=== PATIENT | female | born 1965 | race Caucasian/White ===

== ENCOUNTER 2024-01-02 10:28 | Emergency (ER) | payer BC ==
[~2024-01-02] VITALS: Ht 165.1 cm; Wt 59.0 kg
--- NOTE | 2024-01-02 11:02 | HMCIMG ---
CT HEAD/BRAIN W/O CONTRAST INDICATION: stroke symptoms TECHNIQUE: CT HEAD/BRAIN W/O CONTRAST. CT was performed with one or more of the following dose reduction techniques: Automated exposure control, adjustment of the mA and/or kV according to the patient's size, or use of the iterative reconstruction technique. Comparison: None FINDINGS: The ventricles and extra ventricular CSF spaces are within normal limits. No mass effect, midline shift or herniation. No extra axial collection. No acute intracranial bleed. The visualized paranasal sinuses and mastoid air cells are normally aerated. IMPRESSION: No acute intracranial findings.
--- NOTE | 2024-01-02 11:05 | ERN ---
General Chief Complaint: Stroke Symptoms Stated Complaint: LT FACIAL NUMBNESS Time Seen by MD: 10:29 History of Present Illness Initial Comments 58F presents for L sided facial numbness, bilateral hand numbness, and "difficulty speaking." Patient reports that her bilateral hand numbness began yesterday. She woke up this morning at 7:00 a.m. and felt that the left side of her face was numb and she is having difficulty getting out words. She has clear speech. She denies any vision changes. She denies any changes to her arms or legs. She denies any chest pain shortness of breath. Denies any blood thinners. Medical history: Hypertension Medications: Amlodipine. Patient reports that she has not been taking her amlodipine for months but took it over the last couple of days. PCP: [facility] in [facility]. Allergies: Coded Allergies: No Known Drug Allergies (Unverified Allergy, Unknown, 01/02/24) Past Medical History Past Medical History: Hypertension Medical History Other: CHRONIC ABD PAIN Past Surgical History: Cholecystectomy, Other Surgical History Other: COLON RESECTION Social History Social History: Smokers, ETOH, Lives with family ROS Dictation CONSTITUTIONAL: No chills, no fever, no weakness, no diaphoresis, no malaise. HEAD/FACE: No signs of trauma. EENT: No eye pain, no blurred vision, no tearing, no double vision, no ear pain, no ear discharge, no nose pain, no nasal congestion, no throat pain, no throat swelling, no mouth pain. RESPIRATORY: No cough, no orthopnea, no SOB, no stridor, no wheezing. CARDIOVASCULAR: No chest pain, no edema, no palpitations, no syncope. GASTROINTESTINAL/ABDOMINAL: No abdominal pain, no constipation, no diarrhea, no nausea, no vomiting. GENITOURINARY: No abnormal discharge, no dysuria, no frequent urination, no hematuria. No complaints of pain in the genitals. MUSCULOSKELETAL: No back pain, no gout, no joint pain, no joint swelling, no muscle pain, no muscle stiffness, no neck pain. INTEGUMENTARY: No change in color, no change in hair/nails, no dryness, no lesion, no lumps, no rash. NEUROLOGICAL/PSYCH: Left face numbness bilateral hand numbness HEMATOLOGIC/LYMPHATIC: Not anemic, no history of blood clots, no apparent bleeding, no bruising, glands not swollen. All Systems Negative, Except as Noted. Physical Exam Physical Exam Dictation VITAL SIGNS: Reviewed. GENERAL APPEARANCE: Alert, oriented no distress HEAD AND FACE: Non-traumatic. EYES: PERRL, pink conjunctivas, eyelid no trauma, anterior chamber clear. EARS: Pinnas intact and no signs of trauma or erythema. Ear canals clear and no discharge. TMs no erythema. NOSE: No discharge, no bleeding. OROPHARYNX: Mouth normal, teeth no caries, tongue pink. Pharynx clear, no erythema. Tonsils no exudates, no abscesses noted. Mucous membrane moist. NECK: Supple, non-tender, no thyromegaly, no masses, no JVD, no bruits. BREAST: Deferred. CHEST: No tenderness, no crepitus, no paradoxical movement, no retractions. LUNGS: Clear, well-ventilated, symmetric, no rales, no wheezing, no rhonchi, no stridor, good breath sounds bilaterally. HEART: Regular rate, regular rhythm, no murmur, no gallops. VASCULAR: No peripheral edema. ABDOMEN: Soft, positive bowel sounds, nondistended, no guarding, nontender, no rebound, no masses no hepatomegaly, no splenomegaly, no Bourne's sign, no hernias. RECTAL: Deferred. GENITAL: Deferred. NEUROLOGICAL: Normal speech, gross motor function intact, gross sensory function intact. MUSCULOSKELETAL: Neck nontender, full range of motion, back nontender, full range of motion. EXTREMITIES: Nontender, full range of motion. SKIN: Color pink, dry, no turgor, no rash, no lacerations, no abrasions, no contusions. LYMPHATICS: Deferred. Stroke Patient?: Ischemic Is Patient Candidate for t-PA?: No Did the Patient Receive t-PA?: No Contraindication for t-PA?: Medical Contraindication NIH STROKE SCALE: NIH STROKE SCALE Response (Comments) Value Level of Consciousness Alert 0 Ask patient month and their age Answers both correct 0 Command to open eyes, make fist and let go Obeys both correct 0 Best gaze (horizontal eye movement) Normal 0 Visual Field Testing No Visual Field Loss 0 Facial Paresis Normal / Symmetrical 0 Motor Function - Left Arm Normal 0 Motor Function - Right Arm Normal 0 Motor Function - Left Leg Normal 0 Motor Function - Right Leg Normal 0 Limb Ataxia No Ataxia 0 Sensory-pin prick to arms, legs, trunk and face Mild to Moderate Decrease 1 Best Language (describe picture, name items and read) No Aphasia 0 Dysarthria (read several words) Normal Articulation 0 Extinction and Inattention Normal 0 Total 1 Results Laboratory and Microbiology Lab and Micro Result Laboratory Tests Test 01/02/24 10:35 01/02/24 11:03 01/02/24 12:30 Whole Blood Glucose 101 MG/DL (70-110) White Blood Count 10.5 K/uL (4.8-10.8) Red Blood Count 4.61 MIL/uL (4.00-5.50) Hemoglobin 15.2 g/dL (12.0-16.0) Hematocrit 44.6 % (36-48) Mean Corpuscular Volume 96.7 fL (79-99) Mean Corpuscular Hemoglobin 33.0 pg (27.0-33.0) Mean Corpuscular Hemoglobin Concent 34.1 g/dL (32.0-36.0) Red Cell Distribution Width 12.8 % (11.0-15.5) Platelet Count 314 K/uL (130-400) Mean Platelet Volume 8.8 fL (7.5-10.5) Immature Granulocyte % (Auto) 0.3 % (0-1) Neutrophils (%) (Auto) 70.7 % (40.0-77.0) Lymphocytes (%) (Auto) 20.5 % (21.0-51.0) L Monocytes (%) (Auto) 7.4 % (3.0-13.0) Eosinophils (%) (Auto) 0.5 % (0.0-8.0) Basophils (%) (Auto) 0.6 % (0.0-5.0) Neutrophils # (Auto) 7.5 K/uL (1.8-7.7) Lymphocytes # (Auto) 2.2 K/uL (1.0-4.8) Monocytes # (Auto) 0.8 K/uL (0.1-1.0) Eosinophils # (Auto) 0.05 K/uL (0.00-0.70) Basophils # (Auto) 0.06 K/uL (0.00-0.20) Absolute Immature Granulocyte (auto 0.03 K/uL (0-1) Nucleated Red Blood Cells 0.0 % (0.0-0.19) Prothrombin Time 11.0 SEC (9.6-11.6) Prothromb Time International Ratio 1.02 (0.85-1.15) Activated Partial Thromboplast Time 27.0 SEC (26.3-35.5) Sodium Level 139 mmol/L (136-145) Potassium Level 4.2 mmol/L (3.5-5.1) Chloride Level 104 mmol/L (101-111) Carbon Dioxide Level 29 mmol/L (21-32) Blood Urea Nitrogen 9 mg/dL (7-18) Creatinine 0.6 mg/dL (0.5-1.0) Glomerular Filtration Rate Calc 103 mL/min (>90) Random Glucose 101 mg/dL (70-105) Total Calcium 9.4 mg/dL (8.5-10.1) Total Creatine Kinase 56 U/L (21-232) Troponin I High Sensitivity 6 ng/L (4-50) B-Type Natriuretic Peptide 33 pg/mL (0-100) LDL Cholesterol 98 mg/dL (0-99) Urine Color COLORLESS (YELLOW) Urine Appearance CLEAR (CLEAR) Urine pH 6.0 (5.0-8.0) Urine Specific [place] 1.008 (1.001-1.031) Urine Protein NEGATIVE mg/dL (NEGATIVE) Urine Glucose (UA) NEGATIVE mg/dL (NEGATIVE) Urine Ketones 5 mg/dL (NEGATIVE) H Urine Occult Blood NEGATIVE (NEGATIVE) Urine Nitrate NEGATIVE (NEGATIVE) Urine Bilirubin NEGATIVE mg/dL (NEGATIVE) Urine Urobilinogen 0.2 mg/dL (0.2-1.0) Urine Leukocyte Esterase NEGATIVE Papi/uL MDM CC: Left-sided face numbness, bilateral hand numbness. Onset of symptoms: Bilateral hand numbness yesterday, but face numbness began at 7:00 a.m. this morning upon awakening. Last known well was last night before bed. Patient is NIHSS of one Taken to the CT scanner as a code stroke. CT head without contrast per my independent interpretation shows no focal bleeding or abnormalities. Consultation: Case discussed with the on-call teleneurologist. She will re- evaluate the patient. EKG: NSR, rate of 64, left axis deviation, good R-wave progression, intervals are stable. No STEMI. Independently interpreted by me. Labs ( independently ordered and reviewed by me): CBC normal, coags normal, BMP normal, CK normal, troponin normal, LDL normal, BNP normal, UA is unremarkable CXR (independently interpreted by me): No focal infiltrates no cardiomegaly no abnormalities. I discussed the case with the on-call neurologist. She recommends stroke workup. patient does not a candidate for TNK because she is outside the treatment window. Low suspicion for LV0. will give an aspirin. We do not have Neurology currently, we will coordinate transferred to [facility] for [facility] workup. Patient made aware she agrees. ED Course Orders Procedure Category Date Status Time Cbc With Differential LAB 01/02/24 Complete 10:34 Prothrombin Time With LAB 01/02/24 Complete INR 10:34 Partial LAB 01/02/24 Complete Thromboplastin Time 10:34 Ct Head/Brain W/O CT 01/02/24 Resulted Contrast 10:34 Chest 1vw RAD 01/02/24 Resulted 10:34 12 Lead Ekg Tracing- EKG 01/02/24 Resulted Technical 10:34 Creatine Kinase, Total LAB 01/02/24 Complete 10:34 Ldl Direct LAB 01/02/24 Complete 10:34 Troponin I High LAB 01/02/24 Complete Sensitivity 10:34 Urinalysis Profile LAB 01/02/24 Complete 10:34 B-Type Natriuretic LAB 01/02/24 Complete Peptide 10:34 Bedside Glucose CPOE 01/02/24 Transmitted Fingerstick 10:34 Basic Metabolic Panel LAB 01/02/24 Complete 10:34 Aspirin 325mg Tab PHA 01/02/24 Complete (Aspirin 325mg Tab) 13:00 Vital Signs Date Time Temp Pulse Resp B/P (MAP) Pulse Ox O2 Delivery O2 Flow Rate FiO2 01/02/24 15:52 98.8 60 20 142/74 99 Room Air* 0 01/02/24 14:00 65 16 115/55 99 Room Air* 0 01/02/24 12:00 57 20 146/77 99 Room Air* 0 01/02/24 11:30 98.1 67 16 137/74 99 Room Air* 0 01/02/24 10:33 98.1 68 18 174/86 99 Room Air 0 DX & DISP Disposition: Transfer ([facility] [place] for stroke work up) Departure Impression: Primary Impression: Stroke-like symptoms Critical Time: 30 minutes (Critical Care Procedure NoteAuthorized and Performed by: meTotal critical care time: Approximately 36 minutesDue to a high probability of clinically significant, life threatening deterioration, the patient required my highest level of preparedness to intervene emergently and I personally spent this critical care time directly and personally managing the patient. This critical care time included obtaining a history; examining the patient; pulse oximetry; ordering and review of studies; arranging urgent treatment with development of a management plan; evaluation of patient's response to treatment; frequent reassessment; and, discussions with other providers.This critical care time was performed to assess and manage the high probability of imminent, life-threatening deterioration that could result in multi-organ failure. It was exclusive of separately billable procedures and treating other patients and teaching time.Please see MDM section and the rest of the note for further information on patient assessment and treatment.) Condition: Stable Referrals: VILLA OQUENDO MD (PCP) RONNY LUDWIG DO Jan 02, 2024 11:05
[2024-01-02 11:09] LABS: BASOPHILS # (AUTO) 0.06 K/uL (0.00-0.20); BASOPHILS % (AUTO) 0.6 % (0.0-5.0); EOSINOPHILS # (AUTO) 0.05 K/uL (0.00-0.70); EOSINOPHILS % (AUTO) 0.5 % (0.0-8.0); HEMATOCRIT 44.6 % (36-48); IMMATURE GRANULOCYTE ABSOLUTE 0.03 K/uL (0-1); LYMPHOCYTES # (AUTO) 2.2 K/uL (1.0-4.8); LYMPHOCYTES % (AUTO) 20.5 % (21.0-51.0); MEAN CORPUSCULAR HGB CONC 34.1 g/dL (32.0-36.0); MEAN CORPUSCULAR VOLUME 96.7 fL (79-99); MONOCYTES # (AUTO) 0.8 K/uL (0.1-1.0); MONOCYTES % (AUTO) 7.4 % (3.0-13.0); NEUTROPHILS # (AUTO) 7.5 K/uL (1.8-7.7); NEUTROPHILS % (AUTO) 70.7 % (40.0-77.0); PLATELET COUNT (AUTO) 314 K/uL (130-400); RED BLOOD CELL COUNT(AUTO) 4.61 MIL/uL (4.00-5.50); RED CELL DISTRIBUTION WIDTH 12.8 % (11.0-15.5); WHITE BLOOD COUNT (AUTO) 10.5 K/uL (4.8-10.8)
[2024-01-02 11:23] LABS: CREATININE 0.6 mg/dL (0.5-1.0); POTASSIUM 4.2 mmol/L (3.5-5.1)
[2024-01-02 11:34] LABS: INR 1.02 (0.85-1.15)
--- NOTE | 2024-01-02 11:45 | HMCIMG ---
INDICATION: stroke symptoms TECHNIQUE: CHEST 1VW COMPARISON: None FINDINGS/IMPRESSION: No acute consolidation or pleural effusion. Cardiac silhouette is within normal limits. Mild degenerative changes of the spine. The visualized upper abdomen appears unremarkable.
[2024-01-02 11:49] LABS: B-TYPE NATRIURETIC PEPTIDE 33 pg/mL (0-100)
[2024-01-02 12:40] LABS: APPEARANCE,URINE CLEAR (CLEAR); BILIRUBIN,URINE NEGATIVE (NEGATIVE); COLOR,URINE COLORLESS (YELLOW); GLUCOSE, URINE (UA) NEGATIVE (NEGATIVE); KETONES,URINE 5 mg/dL (NEGATIVE); LEUKOCYTE ESTERASE ,URINE NEGATIVE Leu/uL (NEGATIVE); NITRATE,URINE NEGATIVE (NEGATIVE); OCCULT BLOOD,URINE NEGATIVE (NEGATIVE); PROTEIN,URINE NEGATIVE (NEGATIVE); UROBILINOGEN,URINE 0.2 mg/dL (0.2-1.0)
[2024-01-02 12:52] LABS: ADD UA MICROSCOPIC NO
[2024-01-02] MEDS ORDERED: ASPIRIN 325MG TAB PO ONE (13:00)
[2024-01-02 15:52] VITALS: BP 142/74; PULSE 60; RESP 20; TEMP 98.7; O2SAT 99
--- NOTE | 2024-01-02 15:52 | NUR ---
SUMMARY ADMITTED , CODE STROKE CALLED, TO CT W/O CONTRAST, CXR AND EKG DONE. MED REVIEW. LAST WELL DATE- PT HISTORY CHANGED WITH REPITITION, FIRST SAID LAST WELL WAS WEDNESDAY AFTERNOON, THEN SAID LAST WELL WAS THR. COMPLAINTS OF CONTINUED DIZZINESS, NUMBNESS TINGLING. ONLY DEFICIT OBSERVED/DESCRIBED HERE WAS SLURED SPEECH- NOT NOTICEABLE TO RN, BUT BOTHERSOME TO PATIENT FOR TRANSFER TO [facility] [place] ASA 325 MG GIVEN PRIOR TO DISCHARGE. REPORT TO PATRIC FOSTER RN. TRANSPORTED BY [facility] WITHOUT ALL BELONING, MOT, CHART, IN NAD
--- NOTE | 2024-01-03 07:36 | EKG ---
[facility] Test Date: 2024-01-02 Test Time: 10:46:39 Pat Name: LC BOGGS Department: ED Room: Gender: F Assistant Merchandise Manager: [id number] : 1965 Requested By: RONNY LUDWIG Order Number: [id number] Reading MD: Georgina Tafoya Measurements Intervals [place] Rate: 64 P: 54 UT: 141 QRS: -6 QRSD: 82 T: 50 QT: 423 QTc: 436 Interpretive Statements Sinus rhythm Low voltage, extremity and precordial leads Compared to ECG 11/03/2022 12:40:55 No significant changes Electronically Signed On 01-03-2024 10:48:00 [employer] SERVICE UTILITY WORKER by Georgina Tafoya Please click the below link to view image of tracing.
== END 2024-01-02 16:00 | disposition short-term general hospital (02) ==
LOC: EDH 10:28
DX: I63.9 Cerebral infarction, unspecified (principal); I10 Essential (primary) hypertension; F17.200 Nicotine dependence, unspecified, uncomplicated; Z90.49 Acquired absence of other specified parts of digestive tract
CPT/HCPCS: 36415; 70450; 71045; 80048; 81003; 82550; 82948; 83721; 83880; 84484; 85025; 85610; 85730; 93005; 99285